=== PATIENT | female | born 1995 ===

== ENCOUNTER 2018-11-30 17:55 | Inpatient (IN) ==
--- NOTE | 2018-11-30 13:53 | OB/GYN History & Physical ---
Date of Encounter: 11/30/18 Time of Encounter: 13:41 Assessment and Plan (1) 39 weeks gestation of Current visit: Yes Status: Acute (2) Hypertension affecting in third trimester Current visit: Yes Status: Acute Admit to labor and delivery for IOL secondary to hypertension Pre-E labs WNL Patient may have nubain/epidural upon request GBS negative Start pitocin Consider AROM for augmentation Anticipate vaginal delivery POC per consult with Dr López History of Present Illness Chief complaint: Pre-eclampsia evaluation HPI: Ms. Jimenez is a 23 year old at 39 weeks and 2 days gestation that presents to labor and delivery triage from the office for a pre-eclampsia evaluation. Her blood pressure was elevated in the office today at 150/68 with a headache. She is seen by Dr Perkins for her care. Her current risk factors include marijuana use in early and nicotine dependence. She has had an otherwise uncomplicated . She states positive movement. She denies leaking of fluid, contractions, cramping, vaginal bleeding, visual disturbances, and epigastric pain. She states her last delivery was vaginally without any complications or repair. She denies any increased unusual bleeding after her last delivery. Labs: GBS neg Blood type O+ Hep B NR HIV NR RPR Neg Rubella immune Varicella immune Past Med Surg Social Fam HX - Past Medical History Medical history: no medical history Psychiatric history: no psych history - Past Surgical History Surgical History: no surgical history - Social History Smoking Status: Current every day smoker Smokeless Tobacco Status: No Alcohol use: none Drug use: marijuana - Family History Mother Hx Family Cardiac Disorders: No Hx Family Respiratory Disorders: Yes (asthma) Hx Family Cancer: No Hx Family GI Disorders: No Hx Family Endocrine Disorder: No Hx Family Neuromuscular Disorders: No Hx Family Neurologic Disorders: No Hx Family HEENT Disorders: No Hx Family Autoimmune Disorders: No Obstetrical History - Pregnancies : 2 Para: 1 Term: 1 : 0 Ab's: 0 Livin Medications and Allergies Ondansetron ODT [Zofran ODT] 4 mg SL Q4HR PRN #6 tab.rapdis 12/16/17 [Rx] Allergy/AdvReac Type Severity Reaction Status Date / Time aspirin [ASA] Allergy Difficulty Verified 07/16/16 09:28 Breathing Review of System OB All systems PM: reviewed and no additional remarkable complaints except as stated Exam - Constitutional Constitutional: well developed, well nourished, no acute distress, average body habitus - HEENT HEENT: Normocephaly, Mucus Membranes Moist - Lungs Respiratory exam: CTAB - Cardiovascular Cardiovascular exam: RRR, +S1, +S2 - Abdomen Abdomen: Present: bowel sounds normal, gravid, non tender - Extremities Extremities exam: normal capillary refill, normal inspection, radial pulses palpable and symmetrical Deep Tendon Reflex Grade: 3+ Normal But Brisk - Vagina Vagina: Present: normal moisture - Cervix Dilation: 3 (3-4 per RN exam) Effacement: 80 Station: -2 - Uterus Uterus exam: Present: normal size, normal contour - Anus/Rectum Anus/Rectum: Present: normal perianal skin Results Result Diagrams: 11/30/18 15:33 11/30/18 15:33 All other labs normal. - VTE Reasons for not Prescribing Prophylaxis: Treatment not Indicated - Low risk for VTE
[2018-11-30 16:01] LABS: Basophils % 0.4 %; Eosinophils # 0.1 K/mcL (0.0-0.6); Eosinophils % 0.9 %; Hemoglobin 12.8 g/dL (11.5-15.4); Immature Granulocytes % 0.6 % (0-4); Lymphocytes # 1.4 K/mcL (0.6-4.6); Lymphocytes % 17.3 %; Mean Corpuscular HGB Conc 33.7 g/dL (31.6-35.5); Mean Corpuscular Hemoglobin 31.2 pg (28.0-33.3); Mean Corpuscular Volume 92.7 fL (83.0-100.0); Mean Platelet Volume 10.2 fL (9.4-12.4); Monocytes # 0.4 K/mcL (0.0-1.3); Monocytes % 5.1 %; Neutrophils # 6.1 K/mcL (1.6-8.9); Platelet Count 311 K/mcL (140-400); Red Cell Distribution Width 13.1 % (11.5-14.5); Segmented Neutrophils % 75.7 %
[2018-11-30 16:09] LABS: Amphetamine Screen,Urine Negative ng/mL (Cutoff=1000); Barbiturate Screen,Urine Negative ng/mL (Cutoff=200); Benzodiazepines Screen,Urine Negative ng/mL (Cutoff=200); Cannabinoid Screen,Urine Negative ng/mL (Cutoff = 50); Cocaine Screen,Urine Negative ng/mL (Cutoff= 300); Creatinine,Urine 159 mg/dL; Opiate Screen,Urine Negative ng/mL (Cutoff=300); Phencyclidine Screen,Urine Negative ng/mL (Cutoff=25); Protein/Creatinine Ratio,Urine 0.15 mg/mg (0.00-0.20)
--- NOTE | 2018-11-30 16:09 | Anesthesia Evaluation PreOp ---
Date of Encounter: 11/30/18 Time of Encounter: 16:07 - Past History Planned Operation: CHRISTY Cardiac History: Denies any Significant Hx Pulmonary History: Smoker (3-4 cigs per day) SENIOR PROGRAM ANALYST History: Denies Any Significant HX Other Medical History: Denies Any Significant HX Anesthesia History: No Prior Anesthetic Complications, Past Anesthesia : Yes (39 plus 2, ) Alcohol Use: none Drug use: marijuana Medications and Allergies Ondansetron ODT [Zofran ODT] 4 mg SL Q4HR PRN #6 tab.rapdis 12/16/17 [Rx] Allergy/AdvReac Type Severity Reaction Status Date / Time aspirin [ASA] Allergy Difficulty Verified 07/16/16 09:28 Breathing - Meds/Allergy Pre-op Review Medications Reviewed: Yes Allergies Reviewed: Yes Beta Blockers on Current Med List: No Anesthesia Results - Labs 11/30/18 15:33 Anesthesia Exam O2 Sat Height 1.63 m Weight 77.655 kg Height: 64 Weight: 172 - HEENT Pupil (Motor): Pupils equal Mallampati: II Teeth: Normal Oral Opening: Greater than 3 - SENIOR PROGRAM ANALYST LOC: Oriented SENIOR PROGRAM ANALYST Motor: Normal RUE, Normal LUE, Normal RLE, Normal LLE, Normal Face SENIOR PROGRAM ANALYST Sensory: Normal: RUE, LUE, RLE, LLE, Face - Cardiac Rhythm: Regular Murmur: None JVD: No Carotid Bruit: No - Pulmonary Breath Sounds: bilateral Clear Respiratory Effort: Symmetrical Anesthesia Assess/Plan ASA Score: 2 Level of consciousness: Cooperative Anesthetic Plan: Epidural Monitoring Plan: Standard Monitors
[2018-11-30 16:21] LABS: Alanine Aminotransferase 7 Units/L (7-52); Aspartate Amino Transferase 12 Units/L (13-39); BUN/Creatinine Ratio 15 (6-26); Blood Urea Nitrogen 6 mg/dL (6-20); Lactate Dehydrogenase 120 Units/L (140-271); Uric Acid 3.7 mg/dL (2.3-7.6); eGFR For Non-African Americans > 60 (> 60)
[~2018-11-30 17:55] MED LIST: *HR* Nalbuphine 10 MG/ML AMPUL IVP PRN; Famotidine 20 MG/2 ML VIAL IVP PRN; Metoclopramide 10 MG/2 ML VIAL IVP PRN; Naloxone 0.4 MG/ML INJ IVP PRN; Ondansetron 4 MG/2 ML VIAL IVP PRN; Oxytocin 20 units/ LR 1000 mL 20 UNIT/1,000 ML BAG IVC SCH; Ringers Solution, Lactated 1,000 ML IVC SCH
[2018-11-30] MEDS ORDERED: *HR* FentaNYL (PF) 100 MCG/2 ML VIAL ONE (20:40)
[2018-11-30] MEDS ORDERED: Lidocaine -MPF 1% 5 ML AMPUL ONE (20:41)
[2018-11-30] MEDS ORDERED: *HR* Ropivacaine/PF 0.2% 20 ML VIAL ONE (20:41)
[2018-11-30] MEDS ORDERED: Epidural Premix (fent/bupiv) 110 ML EP ONE (20:55)
--- NOTE | 2018-11-30 21:02 | Anesthesia Procedures ---
Date of Encounter: 11/30/18 Time of Encounter: 20:45 (procedure end time 2104) Procedures: Anesthesia - Epidural/Spinal Patient ID/Chart reviewed: Yes Patient examined: Yes OB Eval: Gestational age: 39 OB Eval: : 5 OB Eval: Hx Para: 3 OB Eval: Dilated at (cm): 9 OB Eval: Contractions: Non-stressed pattern Consent Obtained: Yes Supplemental Oxygen: None/Room Air Site Prep: Aseptic Technique Patient position: upright Local Anesthetic: Lidocaine 1% Amount of Local Anesthetic used: 3 Touhy Needle Gauge: 18 Touhy Needle Depth (cm): 6 Catheter Depth at Skin (cm): 12 Test Dose (1.5% Lido + Epi): Volume given (mls): 3 Test Dose Result: Negative Loading Dose: Fentanyl (mcg): 100 Loading Dose: Other: 6ml 0.2% ropivicaine Loading Dose Administered: Thru Touhy Needle Infusion Med: 0.125% Bupivacaine w/ 2 mcg/ml Fentanyl Infusion Rate (mls/hr): [address]: Tegaderm Interspace Used: L3-L4 Loss of Resistance (ROSA): Yes Blood: No CSF: No Paresthesia: No
[2018-11-30] MEDS ORDERED: Epidural Premix (fent/bupiv) 110 ML EP SCH (21:15)
--- NOTE | 2018-11-30 21:53 | OB/GYN Procedure Note ---
Delivery - Delivery Date: 11/30/18 Provider: María Oliver Intrapartum events: none Delivery induction: oxytocin Delivery augmentation: rupture of membranes Delivery monitor: external FHT, external uterine Anesthesia: local, epidural Quantitated Blood Loss: 100 - Infant (s) A Infant Delivery Date: 11/30/18 Infant Delivery Time: 21:11 Presentation: vertex Position: YEOY Route of delivery: Gender: Male Viability: Viable Pounds: 7 Ounces: 9 Weight Gram: 3.435 kg at 1 minute: 8 at 5 mins: 9 Shoulder Dystocia: not encountered Specimens collected: cord blood Placenta: spontaneous Cord: 3 umbilical vessels - Repair Episiotomy: none Laceration Description: Perineal - 2nd Degree - Complications Delivery complications: none Delivery comments: Patient progressed to complete and began pushing to of viable, vigorous male in the YEYO position. No nuchal, no meconium, and no shoulder dystocia encountered. Infant placed on maternal abdomen, warmed, dried and stimulated. Cord double clamped and cut with the assistance of aunt of the infant after pulsations ceased. Apgars 8 and 9 at 1 and 5 minutes of age respectively. Placenta delivered grossly intact with 3 vessel cord. Upon perineal inspection, a second degree laceration was noted. Repaired with 3-0 monocryl in the usual fashion. A superficial hemostatic right periurethral laceration was noted and left to heal by second intention. Uterus firm and u/2 with scant bleeding after repair. EBL 100mL. Patient and infant in recovery for [address] López notified of delivery. - Disposition Mom disposition: stable in LDR disposition: stable in LDR
[2018-12-01] MEDS ORDERED: Benzocaine/Menthol 56 GM AEROSOL SPRAY TP PRN (00:12)
[2018-12-01] MEDS ORDERED: Acetaminophen 325 MG TABLET PO PRN (00:12)
[2018-12-01] MEDS ORDERED: Lanolin 7 G OINT...G. TP PRN (00:12)
[2018-12-01] MEDS ORDERED: Ibuprofen 600 MG TABLET PO PRN (00:12)
[2018-12-01] MEDS ORDERED: Oxytocin 20 units/ LR 1000 mL 20 UNIT/1,000 ML BAG IVC ONE (00:12)
[2018-12-01] MEDS ORDERED: Oxytocin 20 units/ LR 1000 mL 20 UNIT/1,000 ML BAG IVC SCH (00:12)
[2018-12-01 04:04] LABS: Basophils % 0.1 %; Eosinophils % 0.3 %; Hematocrit 35.3 % (35.3-44.9); Hemoglobin 12.1 g/dL (11.5-15.4); Immature Granulocytes % 0.6 % (0-4); Lymphocytes # 1.5 K/mcL (0.6-4.6); Lymphocytes % 13.7 %; Mean Corpuscular HGB Conc 34.3 g/dL (31.6-35.5); Mean Corpuscular Hemoglobin 31.5 pg (28.0-33.3); Mean Corpuscular Volume 91.9 fL (83.0-100.0); Mean Platelet Volume 10.1 fL (9.4-12.4); Monocytes # 0.8 K/mcL (0.0-1.3); Neutrophils # 8.5 K/mcL (1.6-8.9); Platelet Count 274 K/mcL (140-400); Red Blood Count 3.84 M/mcL (3.82-4.97); Segmented Neutrophils % 78.3 %
[2018-12-01 04:19] LABS: Alanine Aminotransferase 6 Units/L (7-52); Aspartate Amino Transferase 13 Units/L (13-39); BUN/Creatinine Ratio 13 (6-26); Blood Urea Nitrogen 5 mg/dL (6-20); Lactate Dehydrogenase 152 Units/L (140-271); Uric Acid 3.2 mg/dL (2.3-7.6); eGFR For Non-African Americans > 60 (> 60)
[2018-12-01] MEDS ORDERED: Prenatal Vit/FA 1 EACH TABLET PO SCH (09:00)
[2018-12-01 15:44] VITALS: BP 129/83
--- NOTE | 2018-12-01 15:46 | Discharge Summary ---
Date of Encounter: 12/01/18 Time of Encounter: 15:43 - Discharge Diagnosis (1) Vaginal delivery Priority: Primary Status: Acute Comments: Patient meeting day one milestones. Pain well-controlled with prescribed medications. Voiding without difficulty, tolerating regular diet, bleeding light. No bowel movement yet. Anticipate discharge tonight. Patient is aware that it will be weeks evening before she can be discharged and she is agreeable. (2) Second degree laceration of perineum, delivered, current hospitalization Priority: Secondary Status: Acute Comments: Tylenol, ice packs, dermoplast as needed for discomfort. (3) Breast feeding status of mother Priority: Secondary Status: Acute Comments: support as needed. Patient states she has a breast pump at home. - Discharge Medications Prescriptions: New Acetaminophen [Tylenol] 650 mg PO Q6HR PRN tablet PRN Reason: Mild Pain Benzocaine/Menthol [place] [Dermoplast [place]] 1 appl TP QID PRN aerosol PRN Reason: See Comments Docusate [Colace] 100 mg PO BID capsule Lanolin [Lansinoh] 1 appl TP TID PRN oint...g. PRN Reason: Discontinued Ondansetron ODT [Zofran ODT] 4 mg SL Q4HR PRN #6 tab.rapdis PRN Reason: Nausea Home Medications: Acetaminophen [Tylenol] 650 mg PO Q6HR PRN tablet 12/01/18 [Rx] Benzocaine/Menthol [place] [Dermoplast [place]] 1 appl TP QID PRN aerosol 12/01/18 [Rx] Docusate [Colace] 100 mg PO BID capsule 12/01/18 [Rx] Lanolin [Lansinoh] 1 appl TP TID PRN oint...g. 12/01/18 [Rx] Allergies/Adverse Reactions: Allergy/AdvReac Type Severity Reaction Status Date / Time aspirin [ASA] Allergy Difficulty Verified 07/16/16 09:28 Breathing Data Procedures and tests throughout hospitalization: Laboratory Tests 11/30/18 11/30/18 11/30/18 15:33 15:33 15:33 WBC 8.0 RBC 4.10 Hgb 12.8 Hct 38.0 MCV 92.7 MCH 31.2 MCHC 33.7 RDW 13.1 Plt Count 311 MPV 10.2 Immature Gran % 0.6 Seg Neutrophils % 75.7 Lymphocytes % 17.3 Monocytes % 5.1 Eosinophils % 0.9 Basophils % 0.4 Neutrophils # 6.1 Lymphocytes # 1.4 Monocytes # 0.4 Eosinophils # 0.1 Basophils # 0.0 BUN 6 Creatinine 0.41 L Est GFR ( Amer) > 60 Est GFR (Non-Af Amer) > 60 BUN/Creatinine Ratio 15 Uric Acid 3.7 AST 12 L ALT 7 Lactate Dehydrogenase 120 L Urine Creatinine 159 Protein/Creatinin Ratio 0.15 Urine Total Protein 24 H Urine Opiates Screen Negative Ur Barbiturates Screen Negative Ur Phencyclidine Scrn Negative Ur Amphetamines Screen Negative U Benzodiazepines Scrn Negative Urine Cocaine Screen Negative U Marijuana (THC) Screen Negative Ur Drug Screen Interp See Below 12/01/18 12/01/18 03:47 03:47 WBC 10.8 RBC 3.84 Hgb 12.1 Hct 35.3 MCV 91.9 MCH 31.5 MCHC 34.3 RDW 13.0 Plt Count 274 MPV 10.1 Immature Gran % 0.6 Seg Neutrophils % 78.3 Lymphocytes % 13.7 Monocytes % 7.0 Eosinophils % 0.3 Basophils % 0.1 Neutrophils # 8.5 Lymphocytes # 1.5 Monocytes # 0.8 Eosinophils # 0.0 Basophils # 0.0 BUN 5 L Creatinine 0.38 L Est GFR ( Amer) > 60 Est GFR (Non-Af Amer) > 60 BUN/Creatinine Ratio 13 Uric Acid 3.2 AST 13 ALT 6 L Lactate Dehydrogenase 152 Urine Creatinine Protein/Creatinin Ratio Urine Total Protein Urine Opiates Screen Ur Barbiturates Screen Ur Phencyclidine Scrn Ur Amphetamines Screen U Benzodiazepines Scrn Urine Cocaine Screen U Marijuana (THC) Screen Ur Drug Screen Interp Labs on day of discharge: Labs from last 24 hours 12/01/18 12/01/18 11/30/18 03:47 03:47 15:33 WBC 10.8 RBC 3.84 Hgb 12.1 Hct 35.3 MCV 91.9 MCH 31.5 MCHC 34.3 RDW 13.0 Plt Count 274 MPV 10.1 Immature Gran % 0.6 Seg Neutrophils % 78.3 Lymphocytes % 13.7 Monocytes % 7.0 Eosinophils % 0.3 Basophils % 0.1 Neutrophils # 8.5 Lymphocytes # 1.5 Monocytes # 0.8 Eosinophils # 0.0 Basophils # 0.0 BUN 5 L 6 Creatinine 0.38 L 0.41 L Est GFR ( Amer) > 60 > 60 Est GFR (Non-Af Amer) > 60 > 60 BUN/Creatinine Ratio 13 15 Uric Acid 3.2 3.7 AST 13 12 L ALT 6 L 7 Lactate Dehydrogenase 152 120 L Urine Creatinine Protein/Creatinin Ratio Urine Total Protein Urine Opiates Screen Ur Barbiturates Screen Ur Phencyclidine Scrn Ur Amphetamines Screen U Benzodiazepines Scrn Urine Cocaine Screen U Marijuana (THC) Screen 11/30/18 11/30/18 15:33 15:33 WBC 8.0 RBC 4.10 Hgb 12.8 Hct 38.0 MCV 92.7 MCH 31.2 MCHC 33.7 RDW 13.1 Plt Count 311 MPV 10.2 Immature Gran % 0.6 Seg Neutrophils % 75.7 Lymphocytes % 17.3 Monocytes % 5.1 Eosinophils % 0.9 Basophils % 0.4 Neutrophils # 6.1 Lymphocytes # 1.4 Monocytes # 0.4 Eosinophils # 0.1 Basophils # 0.0 BUN Creatinine Est GFR ( Amer) Est GFR (Non-Af Amer) BUN/Creatinine Ratio Uric Acid AST ALT Lactate Dehydrogenase Urine Creatinine 159 Protein/Creatinin Ratio 0.15 Urine Total Protein 24 H Urine Opiates Screen Negative Ur Barbiturates Screen Negative Ur Phencyclidine Scrn Negative Ur Amphetamines Screen Negative U Benzodiazepines Scrn Negative Urine Cocaine Screen Negative U Marijuana (THC) Screen Negative Date of admission: 11/30/18 17:55 Primary care physician: PATTI DELAROSA Consults: 12/01/18 00:12 Consult to Garment Turner [CONS] Routine Comment: Vaginal delivery, consult needed Discharging clinician: Angely Alvarez Anticipated date of discharge: 12/01/18 - Patient Status Disposition: Home, Self-Care Condition: Good Functional capacity at discharge: independent ambulation Overall status at discharge: patient is progressing back to baseline - Discharge Instructions Follow Up With: NONE,PCP [Primary Care Provider] - - Diet and Activity Activity: resume usual activities as tolerated Diet: regular diet Hospital Course Reason for admission: induction of labor Delivery: Episiotomy: none Laceration: 2nd degree Other procedures: none complications: none Discharge diagnosis: IUP at term delivered [place] baby: male Hospital course: Delivery Date: 11/30/18 Provider: María Oliver Intrapartum events: none Delivery induction: oxytocin Delivery augmentation: rupture of membranes Delivery monitor: external FHT, external uterine Anesthesia: local, epidural Quantitated Blood Loss: 100 - Infant (s) A Delivery Date: 11/30/18 Infant Delivery Time: 21:11 Presentation: vertex Position: YEYO Route of delivery: Gender: Male Viability: Viable Pounds: 7 Ounces: 9 Weight Gram: 3.435 kg at 1 minute: 8 at 5 mins: 9 Shoulder Dystocia: not encountered Specimens collected: cord blood Placenta: spontaneous Cord: 3 umbilical vessels - Repair Episiotomy: none Laceration Description: Perineal - 2nd Degree - Complications Delivery complications: none Delivery comments: Patient progressed to complete and began pushing to of viable, vigorous male in the YEYO position. No nuchal, no meconium, and no shoulder dystocia encountered. placed on maternal abdomen, warmed, dried and stimulated. Cord double clamped and cut with the assistance of aunt of the infant after pulsations ceased. Apgars 8 and 9 at 1 and 5 minutes of age respectively. Placenta delivered grossly intact with 3 vessel cord. Upon perineal inspection, a second degree laceration was noted. Repaired with 3-0 monocryl in the usual fashion. A superficial hemostatic right periurethral laceration was noted and left to heal by second intention. Uterus firm and u/2 with scant bleeding after repair. EBL 100mL. Patient and infant in recovery for [address] López notified of delivery. - Disposition Mom disposition: stable in LDR disposition: stable in LDR Time Attestation: Total time spent providing and/or coordinating discharge services: Time Spent: Less than 30 minutes Exam - Constitutional Vitals: Temp Pulse Resp BP Pulse Ox 98.1 F 77 14 125/75 98 12/01/18 08:50 12/01/18 08:50 12/01/18 08:50 12/01/18 08:50 12/01/18 08:50 General appearance IM: A&O X 3, pleasant, no acute distress, answers questions appropriately - Respiratory Respiratory exam: Present: CTAB - Cardiovascular Cardiovascular exam IM: Present: RRR, +S1, +S2 - GI/Abdominal GI/Abdominal exam IM: normal bowel sounds, soft - Rectal Rectal exam: deferred - External exam: normal external exam - Extremities Exam Extremities exam IM: Present: full ROM, normal capillary refill, normal inspection - Neurological Exam Neurological exam: alert, normal gait, oriented X3
== END 2018-12-01 20:00 | disposition home or self-care (01) | DRG 560 ==
LOC: 1NENULAB → 1NENUOBS 12-01 00:12
PROVIDERS: ADMIT Advanced Practice Midwife; ATTEND Advanced Practice Midwife

== ENCOUNTER 2021-02-25 09:59 | Inpatient (IN) ==
[2021-02-25] MEDS ORDERED: Famotidine 20 MG/2 ML VIAL IVP PRN (10:09)
[2021-02-25] MEDS ORDERED: Naloxone 0.4 MG/ML INJ IVP PRN ×2 (10:09→11:36)
[2021-02-25] MEDS ORDERED: Metoclopramide 10 MG/2 ML VIAL IVP PRN (10:09)
[2021-02-25] MEDS ORDERED: Ondansetron 4 MG/2 ML VIAL IVP PRN ×2 (10:09→11:36)
[2021-02-25] MEDS ORDERED: Azithromycin 500 MG in 0.9 % Sodium Chloride 250 ML IVPB PRN (10:09)
[2021-02-25] MEDS ORDERED: Ringers Solution, Lactated 1,000 ML IVC SCH (10:15)
[2021-02-25 10:44] LABS: Basophils % 0.2 %; Eosinophils # 0.1 K/mcL (0.0-0.6); Eosinophils % 1.2 %; Hematocrit 36.5 % (35.3-44.9); Hemoglobin 12.5 g/dL (11.5-15.4); Immature Granulocytes % 0.5 % (0-4); Lymphocytes # 1.4 K/mcL (0.6-4.6); Mean Corpuscular HGB Conc 34.2 g/dL (31.6-35.5); Mean Corpuscular Hemoglobin 31.5 pg (28.0-33.3); Mean Corpuscular Volume 91.9 fL (83.0-100.0); Mean Platelet Volume 10.2 fL (9.4-12.4); Monocytes # 0.4 K/mcL (0.0-1.3); Monocytes % 7.3 %; Neutrophils # 3.9 K/mcL (1.6-8.9); Platelet Count 262 K/mcL (140-400); Red Blood Count 3.97 M/mcL (3.82-4.97); Red Cell Distribution Width 11.9 % (11.5-14.5); Segmented Neutrophils % 66.8 %; White Blood Count 5.8 K/mcL (4.3-11.1)
[2021-02-25 10:58] LABS: Amphetamine Screen,Urine Negative ng/mL (Cutoff=1000); Barbiturate Screen,Urine Negative ng/mL (Cutoff=200); Benzodiazepines Screen,Urine Negative ng/mL (Cutoff=200); Cannabinoid Screen,Urine Negative ng/mL (Cutoff = 50); Cocaine Screen,Urine Negative ng/mL (Cutoff= 300); Opiate Screen,Urine Negative ng/mL (Cutoff=300); Phencyclidine Screen,Urine Negative ng/mL (Cutoff=25)
[2021-02-25] MEDS ORDERED: miSOPROStoL 25 MCG TABLET PO SCH (11:30)
[2021-02-25] MEDS ORDERED: EPHEDrine 50 MG/ML VIAL IVP PRN (11:36)
[2021-02-25] MEDS ORDERED: Ropivacaine/PF 0.2% 20 ML VIAL EP ONE (11:36)
[2021-02-25] MEDS ORDERED: *HR* FentaNYL (PF) 100 MCG/2 ML VIAL EP ONE (11:36)
[2021-02-25] MEDS ORDERED: Epidural Premix (fent/bupiv) 110 ML EP SCH (11:45)
[2021-02-25] MEDS ORDERED: Acetaminophen 325 MG TABLET PO PRN (14:20)
[2021-02-25] MEDS ORDERED: *HR* Buprenorphine HCl 8 MG TAB.SUBL SL SCH (21:00)
== END 2021-02-25 18:37 | disposition home or self-care (01) | DRG 566 ==
LOC: 1NENULAB 09:59
PROVIDERS: ADMIT Student in an Organized Health Care Education/Training Program; ATTEND Student in an Organized Health Care Education/Training Program

== ENCOUNTER 2021-02-26 02:35 | Inpatient (IN) ==
[~2021-02-26 02:35] MED LIST changes: -*HR* Nalbuphine 10 MG/ML AMPUL IVP PRN; +Lidocaine 1% 20 ML MDV ID PRN; -Oxytocin 20 units/ LR 1000 mL 20 UNIT/1,000 ML BAG IVC SCH; -Ringers Solution, Lactated 1,000 ML IVC SCH
[2021-02-26] MEDS ORDERED: Oxytocin 20 units/ LR 1000 mL 20 UNIT/1,000 ML BAG IVC ONE (02:42)
[2021-02-26] MEDS ORDERED: Ringers Solution, Lactated 1,000 ML IVC SCH (02:45)
[2021-02-26 03:13] LABS: Basophils % 0.1 %; Eosinophils % 0.3 %; Hematocrit 37.4 % (35.3-44.9); Hemoglobin 12.7 g/dL (11.5-15.4); Immature Granulocytes % 0.4 % (0-4); Lymphocytes # 1.7 K/mcL (0.6-4.6); Lymphocytes % 21.6 %; Mean Corpuscular Hemoglobin 31.4 pg (28.0-33.3); Mean Corpuscular Volume 92.6 fL (83.0-100.0); Mean Platelet Volume 10.4 fL (9.4-12.4); Monocytes # 0.5 K/mcL (0.0-1.3); Neutrophils # 5.6 K/mcL (1.6-8.9); Platelet Count 268 K/mcL (140-400); Red Blood Count 4.04 M/mcL (3.82-4.97); Red Cell Distribution Width 11.9 % (11.5-14.5); Segmented Neutrophils % 71.6 %; White Blood Count 7.8 K/mcL (4.3-11.1)
[2021-02-26 03:35] LABS: Amphetamine Screen,Urine Negative ng/mL (Cutoff=1000); Barbiturate Screen,Urine Negative ng/mL (Cutoff=200); Benzodiazepines Screen,Urine Negative ng/mL (Cutoff=200); Cannabinoid Screen,Urine Negative ng/mL (Cutoff = 50); Cocaine Screen,Urine Negative ng/mL (Cutoff= 300); Opiate Screen,Urine Negative ng/mL (Cutoff=300); Phencyclidine Screen,Urine Negative ng/mL (Cutoff=25)
[2021-02-26] MEDS ORDERED: Oxytocin 20 units/ LR 1000 mL 20 UNIT/1,000 ML BAG IVC SCH (05:19)
[2021-02-26] MEDS ORDERED: Measles/Mumps/Rubella Vacc 0.5 ML VIAL SQ PRN (05:19)
[2021-02-26] MEDS ORDERED: Rho Immune Globulin 1,500 UNIT SYRINGE IM PRN (05:19)
[2021-02-26] MEDS ORDERED: Acetaminophen 325 MG TABLET PO PRN (05:19)
[2021-02-26] MEDS: Ibuprofen 600 MG TABLET PO PRN ×2 (05:40→17:22)
[2021-02-26] MEDS: Prenatal Vit/FA 1 EACH TABLET PO SCH (09:48)
[2021-02-26] MEDS: *HR* Buprenorphine HCl 8 MG TAB.SUBL SL SCH ×2 (09:48→21:07)
[2021-02-27 05:39] LABS: Basophils % 0.3 %; Eosinophils # 0.1 K/mcL (0.0-0.6); Eosinophils % 1.5 %; Hematocrit 33.9 % (35.3-44.9); Hemoglobin 11.6 g/dL (11.5-15.4); Immature Granulocytes % 0.5 % (0-4); Lymphocytes # 2.4 K/mcL (0.6-4.6); Lymphocytes % 32.2 %; Mean Corpuscular HGB Conc 34.2 g/dL (31.6-35.5); Mean Corpuscular Hemoglobin 31.8 pg (28.0-33.3); Mean Corpuscular Volume 92.9 fL (83.0-100.0); Mean Platelet Volume 10.4 fL (9.4-12.4); Monocytes # 0.5 K/mcL (0.0-1.3); Monocytes % 7.2 %; Neutrophils # 4.3 K/mcL (1.6-8.9); Platelet Count 243 K/mcL (140-400); Red Blood Count 3.65 M/mcL (3.82-4.97); Red Cell Distribution Width 12.2 % (11.5-14.5); Segmented Neutrophils % 58.3 %; White Blood Count 7.3 K/mcL (4.3-11.1)
[2021-02-27 07:32] VITALS: BP 125/70
[2021-02-27] MEDS: *HR* Buprenorphine HCl 8 MG TAB.SUBL SL SCH (08:13)
[2021-02-27] MEDS: Ibuprofen 600 MG TABLET PO PRN (08:13)
[2021-02-27] MEDS: Prenatal Vit/FA 1 EACH TABLET PO SCH (08:14)
== END 2021-02-27 13:45 | disposition home or self-care (01) | DRG 560 ==
LOC: 1NENULAB → 1NENUOBS 05:21
PROVIDERS: ADMIT Student in an Organized Health Care Education/Training Program; ATTEND Student in an Organized Health Care Education/Training Program

== ENCOUNTER 2022-05-06 10:31 | Inpatient (IN) ==
[~2022-05-06 10:31] MED LIST changes: -Lidocaine 1% 20 ML MDV ID PRN; -Ondansetron 4 MG/2 ML VIAL IVP PRN; +Ringers Solution, Lactated 1,000 ML ONE
[2022-05-06] MEDS ORDERED: Ringers Solution, Lactated 1,000 ML IVC SCH (10:45)
[2022-05-06 10:46] LABS: Basophils % 0.2 %; Eosinophils % 0.5 %; Hematocrit 38.6 % (35.3-44.9); Hemoglobin 13.3 g/dL (11.5-15.4); Immature Granulocytes % 0.6 % (0-4); Lymphocytes # 1.9 K/mcL (0.6-4.6); Lymphocytes % 22.6 %; Mean Corpuscular HGB Conc 34.5 g/dL (31.6-35.5); Mean Corpuscular Hemoglobin 31.6 pg (28.0-33.3); Mean Corpuscular Volume 91.7 fL (83.0-100.0); Monocytes # 0.5 K/mcL (0.0-1.3); Monocytes % 5.5 %; Neutrophils # 5.8 K/mcL (1.6-8.9); Platelet Count 253 K/mcL (140-400); Red Blood Count 4.21 M/mcL (3.82-4.97); Red Cell Distribution Width 12.5 % (11.5-14.5); Segmented Neutrophils % 70.6 %; White Blood Count 8.2 K/mcL (4.3-11.1)
[2022-05-06] MEDS ORDERED: Oxytocin 30 UNIT/503 ML BAG IVC ONE (10:53)
[2022-05-06] MEDS ORDERED: Oxytocin 30 UNIT/503 ML BAG IVC SCH (14:13)
[2022-05-06] MEDS ORDERED: Benzocaine/Menthol 56 GM AEROSOL SPRAY TP PRN (14:13)
[2022-05-06] MEDS ORDERED: Lanolin 7 G OINT...G. TP PRN (14:13)
[2022-05-06] MEDS ORDERED: Ondansetron ODT 4 MG TAB.RAPDIS SL PRN (14:13)
[2022-05-06 15:19] LABS: Amphetamine Screen,Urine Negative ng/mL (Cutoff=1000); Barbiturate Screen,Urine Negative ng/mL (Cutoff=200); Benzodiazepines Screen,Urine Negative ng/mL (Cutoff=200); Cannabinoid Screen,Urine Negative ng/mL (Cutoff = 50); Cocaine Screen,Urine Negative ng/mL (Cutoff= 300); Opiate Screen,Urine Negative ng/mL (Cutoff=300); Phencyclidine Screen,Urine Negative ng/mL (Cutoff=25)
[2022-05-06] MEDS: Acetaminophen 325 MG TABLET PO SCH (15:39)
[2022-05-06] MEDS: Ibuprofen 600 MG TABLET PO SCH (20:09)
[2022-05-07 05:49] LABS: Basophils % 0.2 %; Eosinophils # 0.1 K/mcL (0.0-0.6); Eosinophils % 0.8 %; Hematocrit 37.5 % (35.3-44.9); Immature Granulocytes % 0.7 % (0-4); Lymphocytes # 2.4 K/mcL (0.6-4.6); Lymphocytes % 23.8 %; Mean Corpuscular HGB Conc 34.7 g/dL (31.6-35.5); Mean Corpuscular Hemoglobin 31.4 pg (28.0-33.3); Mean Corpuscular Volume 90.6 fL (83.0-100.0); Mean Platelet Volume 10.3 fL (9.4-12.4); Monocytes # 0.7 K/mcL (0.0-1.3); Monocytes % 7.1 %; Neutrophils # 6.7 K/mcL (1.6-8.9); Platelet Count 269 K/mcL (140-400); Red Blood Count 4.14 M/mcL (3.82-4.97); Red Cell Distribution Width 12.5 % (11.5-14.5); Segmented Neutrophils % 67.4 %
[2022-05-07 07:11] VITALS: BP 141/89; PULSE 65; TEMP 97.9; O2SAT 98
[2022-05-07] MEDS: Ibuprofen 600 MG TABLET PO SCH ×2 (08:46→10:01)
[2022-05-07] MEDS: Acetaminophen 325 MG TABLET PO SCH ×2 (08:46→10:00)
[2022-05-07] MEDS ORDERED: Prenatal Vit/FA 1 EACH TABLET PO SCH (09:00)
== END 2022-05-07 10:20 | disposition home or self-care (01) | DRG 560 ==
LOC: 1NENULAB → 1NENUOBS 13:43
PROVIDERS: ADMIT Obstetrics & Gynecology; ATTEND Obstetrics & Gynecology